=== PATIENT | female | born 1990 | race African-American/Black ===

== ENCOUNTER 2018-10-12 19:04 | Emergency (ER) | payer OTHER ==
[~2018-10-12] VITALS: Ht 177.8 cm; Wt 51.4 kg
[2018-10-12 21:02] LABS: BLOOD UREA NITROGEN 19 MG/DL (7-18); CALCIUM LEVEL 9.5 MG/DL (8.5-10.1); CARBON DIOXIDE LEVEL 30 MEQ/L (21-32); CHLORIDE LEVEL 107 MEQ/L (98-107); CK-MB VALUE MASS 1.2 NG/ML (<3.6); CPK CREATINE PHOSPHOKINASE 221 U/L (26-192); GLOMERULAR FILTRATION RATE > 60.0 (>60); GLUCOSE, FASTING 75 MG/DL (70-100); MB/CK RELATIVE INDEX 0.54 (< OR =4); POTASSIUM SERUM 3.8 MEQ/L (3.5-5.1); SODIUM LEVEL 139 MEQ/L (136-145); TROPONIN I < 0.02 NG/ML (< 0.10)
[2018-10-12 21:03] LABS: BASO % 0.6 % (0.0-1.0); EOS # 0.1 10^3/uL (0.0-0.50); EOS % 1.7 % (0.0-3.0); HEMATOCRIT 41.7 % (36.0-47.0); HEMOGLOBIN 14.4 g/dl (12.0-15.5); LYMPH # 2.6 10^3/uL (1.5-6.5); LYMPH % 39.4 % (24.0-44.0); MEAN CORPUSCULAR HGB CONC 34.5 g/dl (32.0-36.5); MEAN CORPUSCULAR VOLUME 89.7 fl (80.0-96.0); MONO # 0.5 10^3/uL (0.0-0.8); MONO % 7.2 % (0.0-5.0); NEUTROPHILS # 3.3 10^3/uL (1.8-7.7); NEUTROPHILS % 50.9 % (36.0-66.0); PLATELET COUNT, AUTOMATED 209 10^3/uL (150-450); RED BLOOD COUNT 4.65 10^6/uL (4.00-5.40); WHITE BLOOD COUNT 6.5 10^3/uL (4.0-10.0)
[2018-10-12] MEDS ORDERED: NS 1,000 ML IV ONE (21:30)
[2018-10-12] MEDS ORDERED: ISOVUE-370 76% 100ML VIAL (Q9967) As Ordered ONE (23:09)
--- NOTE | 2018-10-12 23:50 | REPVR ---
EXAM: CT Angiography Chest With Contrast EXAM DATE/TIME: 10/12/2018 10:52 PM CLINICAL HISTORY: 28 years old, female; Chest pain; Type not specified; Additional info: Chest pain/sob/family HX clots TECHNIQUE: Imaging protocol: Axial computed tomographic angiography images of the chest with intravenous contrast using CT angiography protocol. Coronal and sagittal reformatted images were created and reviewed. 3D rendering: MIP reconstructed images were created and reviewed. Radiation optimization: All CT scans at this facility use at least one of these dose optimization techniques: automated exposure control; mA and/or kV adjustment per patient size (includes targeted exams where dose is matched to clinical indication); or iterative reconstruction. Contrast material: ISO; Contrast volume: 75 ml; Contrast route: AC; COMPARISON: CR Chest, 2 view PA, Lat 10/12/2018 8:55 PM FINDINGS: Pulmonary arteries: There are no pulmonary emboli. Aorta: There is no aortic dissection or aneurysm. Lungs: Unremarkable. No consolidation. No masses. Pleural space: Mild bilateral apical pleural-parenchymal scarring. Lungs otherwise clear. Heart: Unremarkable. No cardiomegaly. No pericardial effusion. Lymph nodes: Unremarkable. No enlarged lymph nodes. Bones/joints: Unremarkable. No acute fracture. Soft tissues: Unremarkable. IMPRESSION: 1. There is no aortic dissection or aneurysm. 2. There are no pulmonary emboli. Electronically signed by: Nael Hobbs On 10/12/2018 23:50:11 PM
[2018-10-13 00:09] VITALS: BP 102/55
--- NOTE | 2018-10-13 00:31 | ECGEPIP ---
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
--- NOTE | 2018-10-13 03:28 | REP ---
Clinical: Acute chest pain . Comparison: None . Technique: PA and lateral. Findings: The mediastinum and cardiac silhouette are normal. The lung maza are clear and without acute consolidation, effusion, or pneumothorax. The skeletal structures are intact and normal. Impression: 1. No acute cardiopulmonary process. Electronically Signed by Kamron Sofia MD 10/13/2018 03:19 A
== END 2018-10-13 00:11 | disposition home or self-care (01) ==
LOC: M ED 19:04
DX: E86.0 Dehydration (principal); R07.89 Other chest pain; R06.02 Shortness of breath; Z83.2 Family history of diseases of the blood and blood-forming organs and certain disorders involving the immune mechanism
CPT/HCPCS: 36415; 71046; 71275; 80048; 82550; 82553; 84484; 84702; 85025; 85379; 93005; 99284; Q9967

== ENCOUNTER 2019-03-12 22:30 | Emergency (ER) | payer OTHER ==
[~2019-03-12] VITALS: Ht 177.8 cm; Wt 52.3 kg
[2019-03-12 22:32] VITALS: BP 118/60
== END 2019-03-12 23:45 | disposition home or self-care (01) ==
LOC: M ED 22:30
DX: B34.9 Viral infection, unspecified (principal)

== ENCOUNTER 2020-02-21 19:15 | Emergency (ER) | payer OTHER ==
[~2020-02-21] VITALS: Ht 177.8 cm; Wt 56.6 kg
[2020-02-21] MEDS ORDERED: GI COCKTAIL 50ML BTL(HYOSCYAMINE/MAALOX/LIDOCAINE VISCOUS)(1:3:1) PO ONE (20:30)
[2020-02-21 21:15] LABS: BASO % 0.4 % (0.0-1.0); EOS # 0.1 10^3/uL (0.0-0.5); EOS % 1.6 % (0.0-3.0); HEMATOCRIT 39.7 % (36.0-47.0); HEMOGLOBIN 13.3 g/dl (12.0-15.5); LYMPH # 2.4 10^3/uL (1.5-5.0); LYMPH % 47.4 % (24.0-44.0); MEAN CORPUSCULAR HEMOGLOBIN 29.1 pg (27.0-33.0); MEAN CORPUSCULAR HGB CONC 33.5 g/dl (32.0-36.5); MEAN CORPUSCULAR VOLUME 86.9 fl (80.0-96.0); MONO # 0.5 10^3/uL (0.0-0.8); MONO % 9.1 % (0.0-5.0); NEUTROPHILS # 2.1 10^3/uL (1.5-8.5); NEUTROPHILS % 41.3 % (36.0-66.0); PLATELET COUNT, AUTOMATED 178 10^3/uL (150-450); RED BLOOD COUNT 4.57 10^6/uL (4.00-5.40); WHITE BLOOD COUNT 5.1 10^3/uL (4.0-10.0)
[2020-02-21 21:44] LABS: ALBUMIN 3.9 GM/DL (3.2-5.2); ALT/SGPT 23 U/L (12-78); BILIRUBIN,DIRECT 0.2 MG/DL (0.0-0.2); BILIRUBIN,TOTAL 0.5 MG/DL (0.2-1.0); BLOOD UREA NITROGEN 12 MG/DL (7-18); CARBON DIOXIDE LEVEL 28 MEQ/L (21-32); CHLORIDE LEVEL 108 MEQ/L (98-107); CK-MB VALUE MASS < 1.0 NG/ML (<3.6); CPK CREATINE PHOSPHOKINASE 148 U/L (26-192); CREATININE FOR GFR 1.02 MG/DL (0.55-1.30); GLOMERULAR FILTRATION RATE > 60.0 (>60); GLUCOSE, FASTING 76 MG/DL (70-100); LIPASE 265 U/L (73-393); MB/CK RELATIVE INDEX 0.68 (< OR =4); POTASSIUM SERUM 4.1 MEQ/L (3.5-5.1); SODIUM LEVEL 138 MEQ/L (136-145); TROPONIN I < 0.02 NG/ML (< 0.10)
[2020-02-21 21:49] LABS: HCG, SERUM QUALITATIVE NEGATIVE (NEGATIVE)
[2020-02-21] MEDS ORDERED: ISOVUE-370 76% 100ML VIAL As Ordered ONE (22:06)
--- NOTE | 2020-02-21 23:21 | REPVR ---
PROCEDURE INFORMATION: Exam: CT Angiography Chest With Contrast Exam date and time: 02/21/2020 9:54 PM Age: 30 years old Clinical indication: Chest pain; Additional info: Cp/elevated d-dimer TECHNIQUE: Imaging protocol: Computed tomographic angiography of the chest with intravenous contrast. 3D rendering (Not supervised by radiologist): MIP and/or 3D reconstructed images were created by the technologist. Radiation optimization: All CT scans at this facility use at least one of these dose optimization techniques: automated exposure control; mA and/or kV adjustment per patient size (includes targeted exams where dose is matched to clinical indication); or iterative reconstruction. Contrast material: ISOVUE 370; Contrast volume: 75 ml; Contrast route: INTRAVENOUS (IV); COMPARISON: CT ANGIO CHEST 10/12/2018 11:14 PM FINDINGS: Pulmonary arteries: Normal. No pulmonary emboli. Aorta: Unremarkable. No aortic aneurysm. No aortic dissection. Lungs: Unremarkable. No consolidation. No masses. Pleural space: Unremarkable. No pneumothorax. No pleural effusion. Heart: Unremarkable. No cardiomegaly. No pericardial effusion. Lymph nodes: Unremarkable. No enlarged lymph nodes. Bones/joints: Unremarkable. No acute fracture. Soft tissues: Unremarkable. IMPRESSION: No pulmonary embolism. Electronically signed by: Shawn Charles On 02/21/2020 23:21:19 PM
[2020-02-21] MEDS ORDERED: PANT40TA29 PO (23:38)
[2020-02-22 00:16] VITALS: BP 103/58
--- NOTE | 2020-02-24 07:43 | ECGEPIP ---
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
== END 2020-02-22 00:20 | disposition home or self-care (01) ==
LOC: M ED 19:15
DX: R07.89 Other chest pain (principal); R79.89 Other specified abnormal findings of blood chemistry; F41.9 Anxiety disorder, unspecified
CPT/HCPCS: 36415; 71275; 80048; 80076; 82550; 82553; 83690; 84484; 84703; 85025; 85379; 93005; 99284; Q9967

== ENCOUNTER → 2020-03-09 | Outpatient (CLI) | payer OTHER ==
[~2020-03-09] MED LIST: ISOVUE-370 76% 100ML VIAL As Ordered ONE; PANT40TA29 PO
--- NOTE | 2020-03-09 13:44 | REP ---
INDICATION: INFERTILITY. COMPARISON: None. TECHNIQUE: The endometrium is cannulated by the attending hotel night auditor. Fluoroscopic guidance is provided during contrast injection and intermittent spot filming is acquired. 0.6 minutes of fluoroscopy time is utilized. FINDINGS: There is opacification of a normal shaped endometrial cavity. No filling defect or synechia is appreciated. The isthmic and ampullary segments of fallopian tubes opacify promptly and symmetrically. Bilateral tubal patency is documented. IMPRESSION: Normal hysterosalpingogram documenting bilateral tubal patency. <Electronically signed by Zafar Huff > 03/09/20 [id number]
--- NOTE | 2020-03-09 15:52 | ROOPDOC ---
[facility] Report Of Operation Report of Operation PRE-PROCEDURE DIAGNOSIS: 1) Infertility POST-PROCEDURE DIAGNOSIS: Same PHYSICIAN PERFORMING PROCEDURE: Dr. Jefferson CONSENT: The HSG procedure, indication, risks, and benefits were discussed with the patient and informed written consent was obtained. PATIENT COUNSELLED IN REGARDS TO HSG RISKS AND BENEFITS TO INCLUDE INFECTION, DISRUPTION OF , BLEEDING, AND PAIN. FINAL TIME OUT PERFORMED IMMEDIATELY PRIOR TO HSG. PROCEDURE: STERILE SPECULUM PLACED CERVIX CLEANSED WITH BETADINE TRIPLE SWAB TENACULUM UTILIZED (NO) HSG CATHETER PASSED, BALLOON INFLATED APPROX 10mL OF ISOVUE CONTRAST WAS INFUSED AP AND OBLIQUE IMAGES WERE OBTAINED PRELIMINARY FINDINGS: 1) UTERINE FINDINGS NORMAL 2) LEFT FALLOPIAN TUBE PATENT 3) RIGHT FALLOPIAN TUBE PATENT PATIENT TOLERATED THE PROCEDURE WELL DISCHARGED TO HOME WITH PRECAUTIONS ANTIBIOTICS RECOMMENDED: NO COMPLICATIONS: NONE DISCHARGE INSTRUCTIONS GIVEN PATIENT TO F/U WITH ORDERING PROVIDER FOR FINAL IMPRESSION AND CLINICAL CORRELATION APPROX TIME: 10 MIN COUNSELLING 20 MIN IN PROCEDURE MARIO JEFFERSON DO Mar 09, 2020 15:52
== END ==
LOC: M RADPRO 11:31
PROVIDERS: ATTEND Obstetrics & Gynecology
DX: N97.9 Female infertility, unspecified (principal)
CPT/HCPCS: 74740; Q9967

== ENCOUNTER → 2020-04-19 | Outpatient (CLI) | payer OTHER ==
[~2020-04-19] MED LIST changes: -ISOVUE-370 76% 100ML VIAL As Ordered ONE
--- NOTE | 2020-04-19 19:51 | REP ---
INDICATION: ELVATED D DIMER ? DVT COMPARISON: None. TECHNIQUE: Burnett scale and color Doppler evaluation bilateral lower extremities using linear high frequency transducer. FINDINGS: Ultrasound examination of the right and left lower extremity deep venous structures from the common femoral vein to the popliteal vein demonstrates normal compressibility flow and wave patterns in response to respiration and augmentation. There is no evidence for deep venous thrombosis. IMPRESSION: No evidence for deep venous thrombosis. <Electronically signed by Kamron Sofia > 04/19/201946
== END ==
LOC: M RAD 12:57
PROVIDERS: ATTEND Internal Medicine Cardiovascular Disease
DX: R79.1 Abnormal coagulation profile (principal)

== ENCOUNTER → 2020-05-07 | Outpatient (CLI) | payer OTHER ==
--- NOTE | 2020-05-07 09:37 | REP ---
INDICATION: CHEST PAIN, UNSPECIFIED. COMPARISON: Comparison chest x-ray October 12, 2018. TECHNIQUE: Two views.. FINDINGS: There is an area of mild linear fibrosis in the right upper perihilar region unchanged from the 2019 prior study. Lung maza are otherwise clear. Pleural angles are sharp. Heart size is normal. Pulmonary vasculature is not increased. A mild S-shaped thoracic curvature is noted unchanged. IMPRESSION: No active disease.. <Electronically signed by Zafar Huff > 05/07/20 [id number]
== END ==
LOC: M RAD 09:17
PROVIDERS: ATTEND Internal Medicine Cardiovascular Disease
DX: R07.9 Chest pain, unspecified (principal)

== ENCOUNTER → 2020-05-08 | Outpatient (CLI) | payer OTHER ==
--- NOTE | 2020-05-08 10:59 | REP ---
INDICATION: ELEVATED D DIMER, CHEST PAIN PT HAD CHEST XR DONE 05.07.20. COMPARISON: Chest x-ray from 07 May 2020.. TECHNIQUE: 1.0 mCi of technetium 99m DTPA aerosol is utilized for the ventilation study and is followed by a 5.3 mCi dose of intravenous technetium 99m MAA for the perfusion study. A sequence of 8 planar images are acquired for each portion of the study. FINDINGS: Perfusion study shows homogeneous distribution of radiotracer throughout the lung maza. No perfusion defect is seen. Ventilation study is unremarkable as well. IMPRESSION: Normal ventilation perfusion lung scan. <Electronically signed by Zafar Huff > 05/08/20 [id number]
== END ==
LOC: M RAD 08:48
PROVIDERS: ATTEND Internal Medicine Cardiovascular Disease
DX: R07.9 Chest pain, unspecified (principal)

== ENCOUNTER 2020-07-10 19:33 | Emergency (ER) | payer OTHER ==
[~2020-07-10] VITALS: Ht 177.8 cm; Wt 58.1 kg
[2020-07-10] MEDS ORDERED: VITAD400CA FT (19:43)
[2020-07-11] MEDS ORDERED: ACETAMINOPHEN 500 MG TAB PO ONE (00:50)
[2020-07-11] MEDS ORDERED: MECLIZINE 25 MG TABLET PO ONE (00:50)
[2020-07-11] MEDS ORDERED: METOCLOPRAMIDE 10 MG TAB PO ONE (00:50)
[2020-07-11 01:01] VITALS: BP 105/66
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
[2020-07-11] MEDS ORDERED: NAPROXEN 250 MG TAB PO ONE (01:30)
[2020-07-11] MEDS ORDERED: MECL1TAB31 PO (01:50)
[2020-07-11] MEDS ORDERED: methocarbamoL 750 MG TAB PO ONE (01:50)
[2020-07-11] MEDS ORDERED: NAPR-837 PO (01:50)
[2020-07-11] MEDS ORDERED: METH-1165 PO (01:50)
== END 2020-07-11 02:04 | disposition home or self-care (01) ==
LOC: M ED 19:33
DX: Z04.1 Encounter for examination and observation following transport accident (principal); R42 Dizziness and giddiness; M54.9 Dorsalgia, unspecified